=== PATIENT | female | born 1965 | race African-American/Black ===

== ENCOUNTER 2017-02-22 19:13 | Inpatient (IN) ==
[2017-02-22] MEDS ORDERED: niCARdipine 25 MG/10 ML VIAL IV ONE (21:20)
[2017-02-22] MEDS ORDERED: niCARdipine INJ 25 MG in SODIUM CHLORIDE 0.9% 240 ML IV SCH (21:30)
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
[2017-02-22 22:14] LABS: Basophils # 0.1 10*3/uL (0.0-0.2); Basophils % 0.9 % (0.0-0.8); Eosinophils # 0.1 10*3/uL (0.0-0.87); Eosinophils % 1.5 % (0.00-10.9); Hematocrit 39.8 VOL% (35.7-47.0); Hemoglobin 12.7 GM/DL (12.0-16.0); Immature Granulocytes % 0.3 %; Immature Granulocytes Absolute 0.02 #; Lymphocytes # 1.5 10*3/uL (1.4-4.0); Lymphocytes % 22.1 % (21.3-54.2); Mean Corpuscular HGB Conc 31.9 GM/DL (32-36); Mean Corpuscular Hemoglobin 32 PG (27-34); Mean Platelet Volume 13.1 FL (9.6-12.0); Monocytes # 0.7 10*3/uL (0.11-0.8); Monocytes % 9.9 % (1.7-12.7); Neutrophils # 4.3 10*3/uL (1.4-7.4); Neutrophils % 65.3 % (38.7-73.9); Platelet Count 182 T/CUMM (130-400); Red Blood Count 4.02 MC/CUMM (3.8-5.5); Red Cell Distribution Width 12.4 % (9.3-17.3); White Blood Count 6.6 T/CUMM (4-12)
[2017-02-22] MEDS ORDERED: MORPHINE 2 MG/1 ML SYRINGE IV STA (22:16)
[2017-02-22] MEDS ORDERED: ONDANSETRON 4 MG/2 ML VIAL IV STA (22:16)
[2017-02-22 22:25] LABS: Osmolality,Calculated 275.7 MOS/KG (273-304); Potassium 3.9 MMOL/L (3.5-5.1)
[2017-02-22] MEDS ORDERED: ONDANSETRON 4 MG/2 ML VIAL ONE (22:25)
[2017-02-22] MEDS ORDERED: MORPHINE 2 MG/1 ML SYRINGE ONE (22:26)
[2017-02-22 23:40] LABS: Apearance,Urine CLEAR (Clear); Bacteria,Urine Occasional /HPF (Few); Bilirubin,Urine Negative (Negative); Blood, Urine Negative (Negative); Glucose,Urine (UA) Negative (Negative); Hyaline Casts,Urine 1 /LPF (0-3); Ketones,Urine 5 mg/dL (Negative); Mucus,Urine Occasional /LPF (Occasional); Nitrite,Urine Negative (Negative); Protein,Urine Negative; RBC,Urine 6 /HPF (0-4); Squamous Epithelial Cell,Urine Occasional /HPF (0-10); Urine Color Yellow (Yellow); Urine Specific Gravity 1.011 (1.001-1.035); Urine Urobilinogen < 2.0 EU/DL (0.2-1.0); WBC,Urine 15 /HPF (0-6)
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
[2017-02-23] MEDS ORDERED: niCARdipine 25 MG/10 ML VIAL IV ONE ×2 (04:07→12:56)
[2017-02-23] MEDS ORDERED: niCARdipine INJ 25 MG in SODIUM CHLORIDE 0.9% 240 ML IV SCH (04:30)
--- NOTE | 2017-02-23 07:40 | XRay Report ---
XR chest 1V portable Indication: Chest pain. Chest one view: Heart size is upper limits normal. Mediastinal contour is unremarkable. Lungs are clear, but slightly hypoinflated. Pleural spaces are clear. Impression: Borderline cardiomegaly and pulmonary hypoinflation. PROCEDURE INTERPRETED AT [facility] DEPARTMENT OF RADIOLOGY Final Report Signed by: Jere Timmons M.D.
--- NOTE | 2017-02-23 08:56 | CT Report ---
CT angio chest Indication: Chest pain. CT ANGIOGRAM CHEST DLP: 369 mGy*cm. One or more of the following dose reduction techniques was used: Automated exposure control, adjustment of the mA and/or kV according the patient size, or use of iterative reconstruction techniques. Technique: Axial CT images of the chest were obtained during the arterial and venous phases of contrast injection. 3-D vascular MIPS reconstructions and multiplanar reformats were evaluated. Omnipaque 350, 100 cc. Comparison: None Arteriogram: Bovine arch is present. No aortic aneurysm, dissection or periaortic hematoma shown. A significant thoracic aortic root 30 mm. Great vessels show patency. No incidentally noted pulmonary artery filling defects. Heart size is upper limits normal. No mediastinal, axillary or hilar lymphadenopathy. Clear lungs. Clear pleural spaces. Upper abdomen demonstrates mild fatty infiltration of the liver and obesity. It is otherwise unremarkable. Impression: Negative CT angiogram of the chest. Fatty infiltration of the liver. PROCEDURE INTERPRETED AT [facility] [place] DEPARTMENT OF RADIOLOGY Final Report Signed by: Jere Timmons M.D.
[2017-02-23] MEDS ORDERED: CARVEDILOL 3.125 MG TABLET ONE (09:09)
[2017-02-23] MEDS ORDERED: amLODIPine 5 MG TABLET ONE (09:09)
[2017-02-23] MEDS: amLODIPine 10 MG TABLET PO SCH (09:16)
[2017-02-23] MEDS ORDERED: CARVEDILOL 12.5 MG TABLET PO SCH (09:30)
--- NOTE | 2017-02-23 10:11 | EKG Report ---
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
[2017-02-23] MEDS ORDERED: cloNIDine 0.1 MG TABLET ONE ×2 (13:57→14:02)
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
[2017-02-23] MEDS: CARVEDILOL 25 MG TABLET PO SCH (21:42)
[2017-02-23] MEDS: VENLAFAXINE 75 MG TABLET PO SCH (21:42)
[2017-02-24 06:04] LABS: Basophils % 0.6 % (0.0-0.8); Eosinophils # 0.2 10*3/uL (0.0-0.87); Eosinophils % 2.4 % (0.00-10.9); Hemoglobin 12.6 GM/DL (12.0-16.0); Immature Granulocytes % 0.2 %; Immature Granulocytes Absolute 0.01 #; Lymphocytes # 1.4 10*3/uL (1.4-4.0); Mean Corpuscular HGB Conc 32.3 GM/DL (32-36); Mean Corpuscular Hemoglobin 32 PG (27-34); Mean Corpuscular Volume 97.5 FL (87-102); Mean Platelet Volume 12.8 FL (9.6-12.0); Monocytes # 0.7 10*3/uL (0.11-0.8); Monocytes % 10.7 % (1.7-12.7); Neutrophils # 4.2 10*3/uL (1.4-7.4); Neutrophils % 64.1 % (38.7-73.9); Platelet Count 203 T/CUMM (130-400); Red Cell Distribution Width 12.2 % (9.3-17.3); White Blood Count 6.5 T/CUMM (4-12)
[2017-02-24 06:53] LABS: Calcium 8.8 MG/DL (8.5-10.1); Potassium 4.1 MMOL/L (3.5-5.1); Thyroid Stimulating Hormone 0.982 uIU/ml (0.358-3.74)
[2017-02-24] MEDS ORDERED: amLODIPine 5 MG TABLET PO SCH (09:00)
[2017-02-24] MEDS ORDERED: LISINOPRIL/HCTZ 10-12.5 MG TABLET PO SCH (09:00)
[2017-02-24] MEDS: CARVEDILOL 25 MG TABLET PO SCH (09:27)
[2017-02-24] MEDS: amLODIPine 10 MG TABLET PO SCH (09:28)
[2017-02-24] MEDS: VENLAFAXINE 75 MG TABLET PO SCH (09:28)
[2017-02-24 11:41] VITALS: BP 129/73
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
--- NOTE | 2017-02-25 10:05 | EKG Report ---
Stationary ECG Study [facility] Test Date: 02/25/2017 2:52:28 AM Pat Name: ABAD WESTBROOK Department: Room: 279 Gender: F Billing Representative: Fransisca : 1965 Requested by: Maribeth Cardoso Order Number: [id number] Reading MD: OMID WELDON Intervals [place] Rate: 48 P: 52 [place]: 187 QRS: -28 QRSD: 87 T: -18 QT: 443 QTc: 408 Interpretive Statements SINUS BRADYCARDIA WITH SINUS ARRHYTHMIA MILD LEFT AXIS DEVIATION MINIMAL VOLTAGE CRITERIA FOR LVH, MAY BE NORMAL VARIANT NONSPECIFIC T WAVE ABNORMALITY Electronically Signed On 02-25-17 11:38:36 CDT by OMID WELDON [email or web address]
== END 2017-02-24 16:10 | disposition home or self-care (01) | DRG 305 ==
LOC: N.ED 19:13 → OBSVTOIN 02-23 01:02 → N.EDINP 02-23 13:49 → INTOOBSV 02-23 13:49 → N.TELES 02-23 14:55
PROVIDERS: ADMIT Internal Medicine; ATTEND Internal Medicine